=== PATIENT | female | born 1965 | race Caucasian/White ===

== ENCOUNTER 2024-04-27 18:07 | Emergency (ER) | payer SELFPAY ==
[~2024-04-27] VITALS: Ht 152.4 cm; Wt 65.0 kg
[2024-04-27 18:17] VITALS: BP 139/87; PULSE 72; RESP 18; TEMP 98.6; O2SAT 98
[2024-04-27] MEDS ORDERED: ACETAMINOPHEN 325MG TABLET PO ONE (19:45)
== END 2024-04-27 20:13 | disposition home or self-care (01) ==
LOC: ER 18:07
DX: R68.84 Jaw pain (principal)
CPT/HCPCS: 99281